=== PATIENT | male | born 1985 | race Hispanic/Latino ===

== ENCOUNTER 2022-05-19 13:30 | Emergency (ER) | payer OTHER, SELFPAY ==
[2022-05-19] MEDS ORDERED: MORPHINE 4 MG/ML SYR ONE ×2 (14:02→15:10)
[2022-05-19] MEDS ORDERED: ONDANSETRON 4 MG/2 ML VIAL ONE (14:02)
[2022-05-19] MEDS ORDERED: NA CHLORIDE 0.9% 1,000 ML ONE (15:12)
--- NOTE | 2022-05-19 15:12 | RAD REPORT ---
EXAM DESCRIPTION: RAD - Forearm Left - 05/19/2022 2:56 pm CLINICAL HISTORY: PAIN, blunt force trauma COMPARISON: None. FINDINGS: No fracture is identified. There is no dislocation or periosteal reaction noted. No air or foreign body in the soft tissues. Soft tissue edema or hematoma seen along the posterior or dorsal margin of the mid forearm. IMPRESSION: No fracture or acute bone finding.
--- NOTE | 2022-05-19 15:12 | RAD REPORT ---
EXAM DESCRIPTION: RAD - Hand Left 3 View - 05/19/2022 2:56 pm CLINICAL HISTORY: PAIN, blunt force trauma COMPARISON: None. FINDINGS: No fracture, dislocation or periosteal reaction noted. No foreign body or other soft tissu e abnormality. IMPRESSION: Negative left hand examination.
[2022-05-19] MEDS ORDERED: BUPIVACAINE 0.5% PF 10 ML VIAL ONE (16:23)
[2022-05-19] MEDS ORDERED: LIDOCAINE 1% MPF 5 ML VIAL ONE (16:23)
[2022-05-19] MEDS ORDERED: CEPHALEXIN 250 MG CAP ONE (16:58)
[2022-05-19] MEDS ORDERED: HYDROCODONE/APAP 10/325 TAB ONE (16:58)
[2022-05-19] MEDS ORDERED: TETANUS & DIPHTHERIA TOX,ADULT 0.5 ML VIAL ONE (16:59)
--- NOTE | 2022-05-19 17:09 | EDPHYS ---
Physician Documentation [facility] Name: Bright Thao Age: 36 yrs Sex: Male : 1985 Arrival Date: 05/19/2022 Time: 13:31 Bed 5 Private MD: ED Physician Roseanne Peace HPI: 05/19 14:00 This 36 yrs old Male presents to ER via Ambulatory with complaints of Crush cp Injury To Arm. 14:00 The patient or guardian complains of a crush injury, between two metal plates. cp 14:00 The complaints affect the left wrist and left hand and distal left forearm. Context: cp The problem was sustained at work, resulted from a crush injury. Onset: The symptoms/episode began/occurred just prior to arrival. Treatment prior to arrival includes: no previous treatment. Modifying factors: the symptoms are aggravated by movement. 14:00 Associated signs and symptoms: Pertinent positives: decreased range of motion, cp numbness, swelling, Pertinent negatives: deformity. Severity of symptoms: in the emergency department the symptoms are unchanged, despite home interventions. Historical: - Allergies: 13:46 No Known Allergies; ld1 - PMHx: 13:46 None; ld1 - PSHx: 13:46 None; ld1 - Immunization history:: Adult Immunizations up to date, Client reports receiving the 2nd dose of the Covid vaccine. - Social history:: Smoking status: Patient denies any tobacco usage or history of. Patient/guardian denies using alcohol. ROS: 14:05 Constitutional: Negative for body aches, chills, fever, poor PO intake. cp 14:05 Neck: Negative for pain with movement, pain at rest, stiffness. cp 14:05 Cardiovascular: Negative for chest pain, palpitations. 14:05 Respiratory: Negative for cough, shortness of breath, wheezing. 14:05 Abdomen/GI: Negative for abdominal pain, nausea, vomiting, and diarrhea. 14:05 Back: Negative for pain at rest, pain with movement. 14:05 MS/extremity: Positive for decreased range of motion, pain, paresthesias, swelling, tenderness, of the left hand and left wrist and distal aspect left forearm. 14:05 Neuro: Positive for numbness, of the left thumb, Negative for altered mental status, headache, weakness. 14:05 All other systems are negative. Exam: 14:10 Constitutional: The patient appears in no acute distress, alert, awake, non-toxic, well cp developed, well nourished, in obvious pain, uncomfortable. 14:10 Head/Face: Normocephalic, atraumatic. cp 14:10 Neck: ROM/movement: is normal, is supple, without pain, no range of motions limitations. 14:10 Chest/axilla: Inspection: normal. 14:10 Cardiovascular: Rate: normal, Rhythm: regular. 14:10 Respiratory: the patient does not display signs of respiratory distress, Respirations: normal, no use of accessory muscles, no retractions, labored breathing, is not present, Breath sounds: are clear throughout, no decreased breath sounds, no stridor, no wheezing. 14:10 Abdomen/GI: Inspection: abdomen appears normal, Palpation: abdomen is soft and non-tender, in all quadrants. 14:10 Back: pain, is absent, ROM is normal. 14:10 Musculoskeletal/extremity: Extremities: grossly normal except: noted in the left hand and left wrist and left distal forearm: decreased ROM, ecchymosis, swelling, tenderness, noted in the left thumb: moderate swelling noted of proximal phalanx extending to hyper thenar eminence, laceration noted to lateral side of proximal phalanx, active ROM decreased with flexion due to swelling and pain, sensation decreased distally, brisk cap refill noted, nail and nailbed intact. Vital Signs: 13:46 BP 115 / 81; Pulse 75; Resp 18; Temp 98.1(O); Pulse Ox 100% on R/A; Weight 97.07 kg; ld1 Height 6 ft. 0 in. (182.88 cm); Pain 10/10; 13:46 Body Mass Index 29.02 (97.07 kg, 182.88 cm) ld1 Laceration: 17:00 Wound Repair of 3cm ( 1.2in ) subcutaneous laceration to left thumb. Linear shaped.. cp Distal neuro/vascular/tendon intact. Anesthesia: Local anesthetic administered with 8 mls of Lido/Marcaine. Wound prep: Moderate cleansing by nurse by me, Wound irrigation by me. Skin closed with 5 4-0 Prolene using interrupted sutures and sterile technique. Dressed with Bacitracin, 4x4's. Patient tolerated well. MDM: 13:47 Patient medically screened. cp 17:07 Data reviewed: vital signs, nurses notes, radiologic studies, plain films. cp 17:07 Differential diagnosis: dislocation, open fracture, closed fracture, contusion, tendon cp rupture. Test interpretation: by ED physician or midlevel provider: plain radiologic studies. Counseling: I had a detailed discussion with the patient and/or guardian regarding: the historical points, exam findings, and any diagnostic results supporting the discharge/admit diagnosis, radiology results, the need for outpatient follow up, a hand specialist, to return to the emergency department if symptoms worsen or persist or if there are any questions or concerns that arise at home. Response to treatment: the patient's symptoms have markedly improved after treatment, and as a result, I will discharge patient. ED course: VSS. Pain improved with meds. Extremity splinted, laceration sutured closed. No fractures noted on xrays and no obvious signs of flexor tendon damage of left thumb. Will discharge to home with oral antibiotics, pain medications and recommendation to f/u with hand surgeon. 05/19 13:48 Order name: XRAY Hand LEFT 3 View; Complete Time: 15:40 05/19 15:40 Interpretation: Report reviewed. 05/19 13:48 Order name: XRAY Forearm LEFT; Complete Time: 15:40 05/19 15:40 Interpretation: Report reviewed. 05/19 13:48 Order name: IV; Complete Time: 13:53 05/19 14:03 Order name: Wound Care; Complete Time: 15:46 cp 05/19 15:42 Order name: Splint - Sugar Tong - Forearm; Complete Time: 16:06 cp 05/19 15:56 Order name: Dressing - Wound; Complete Time: 16:06 05/19 15:56 Order name: Gloves, Sterile; Complete Time: 16:06 05/19 15:56 Order name: Setup Suture Tray; Complete Time: 16:06 05/19 16:46 Order name: Wound dressing; Complete Time: 16:59 cp Administered Medications: 13:58 Drug: morphine 4 mg Route: IVP; Infused Over: 4 mins; Site: right antecubital; jh5 14:00 Drug: Zofran (Ondansetron) 4 mg Route: IVP; Site: right antecubital; 5 15:10 Drug: morphine 4 mg Route: IVP; Infused Over: 4 mins; Site: right antecubital; 5 16:44 Drug: Lidocaine (1 %) 10 ml {Note: given via Page.} Volume: 5 ml; Route: Infiltration; 5 16:44 Drug: Marcaine (bupivacaine) (0.5 %) 10 ml {Note: given via Page.} Volume: 10 ml; 5 Route: Infiltration; 16:56 Drug: Tetanus-Diphtheria Toxoid Adult 0.5 ml {Pest Technician: [employer]. Exp: jh5 07/10/2022. Lot #: [id number]. } Route: IM; Site: left deltoid; 16:57 Drug: KeFLEX (cephalexin) 500 mg Route: PO; 5 16:57 Drug: HYDROcodone-acetaminophen 10 mg-325 mg 1 tabs Route: PO; jh5 Disposition Summary: 05/19/22 17:08 Discharge Ordered Location: Home cp Problem: new cp Symptoms: have improved cp Condition: Stable cp Diagnosis - Laceration without foreign body of left thumb without damage to nail, initial cp encounter - Crushing injury of hand - left cp - Crushing injury of left wrist, initial encounter cp Followup: cp - With: Osiel Landrum MD - When: 2 - 3 days - Reason: Wound Recheck Discharge Instructions: - Discharge Summary Sheet cp - Laceration Care, Adult cp - Crush Injury of the Hand cp Forms: - Medication Reconciliation Form cp - Thank You Letter cp - Antibiotic Education cp - Prescription Opioid Use cp Prescriptions: - Cephalexin 500 mg Oral Capsule - take 1 capsule by ORAL route every 6 hours for 10 days; 40 capsule; Refills: 0, cp Product Selection Permitted - Ibuprofen 800 mg Oral Tablet - take 1 tablet by ORAL route every 8 hours As needed take with food; 30 tablet; cp Refills: 0, Product Selection Permitted - Tylenol-Codeine #3 300 mg-30 mg Oral - take 2 tablet by ORAL route every 6-8 hours; 20 tablet; Refills: 0, Product cp Selection Permitted Signatures: Dispatcher [employer] EDMS Kan Stewart PA PA cp Dibbern, Lauren, RN RN ld1 Enma Garcia RN RN jh5 Corrections: (The following items were deleted from the chart) 05/20 15:48 15:45 The patient or guardian complains of a crush injury, between two metal , cp cp
--- NOTE | 2022-05-19 17:09 | ER ---
Nurse's Notes [facility] Name: Bright Thao Age: 36 yrs Sex: Male : 1985 Arrival Date: 05/19/2022 Time: 13:31 Bed 5 Private MD: Diagnosis: Laceration without foreign body of left thumb without damage to nail, initial encounter;Crushing injury of hand-left;Crushing injury of left wrist, initial encounter Presentation: 05/19 13:42 Chief complaint: Patient states: arm was crushed between two metal plates at work 15 eh3 minutes ago. Care prior to arrival:. Mechanism of Injury: Crush injury from industrial equipment. Trauma event details: Injury occurred in the [facility], Injury occurred:. 13:42 Acuity: PHILOMENA 2 eh3 13:42 Method Of Arrival: Ambulatory eh3 13:46 Coronavirus screen: At this time, the client does not indicate any symptoms associated ld1 with coronavirus-19. Ebola Screen: No symptoms or risks identified at this time. Initial Sepsis Screen: Does the patient meet any 2 criteria? No. Patient's initial sepsis screen is negative. Does the patient have a suspected source of infection? No. Patient's initial sepsis screen is negative. Risk Assessment: Do you want to hurt yourself or someone else? Patient reports no desire to harm self or others. Onset of symptoms was May 19, 2022. Triage Assessment: 13:46 General: Appears in no apparent distress. comfortable, Behavior is calm, cooperative, ld1 appropriate for age. Pain: Complains of pain in left arm Pain does not radiate. Pain currently is 10 out of 10 on a pain scale. Quality of pain is described as crushing, sharp, shooting, throbbing. EENT: No signs and/or symptoms were reported regarding the EENT system. Neuro: Level of Consciousness is awake, alert, obeys commands, Oriented to person, place, time, situation. Cardiovascular: Capillary refill < 3 seconds Patient's skin is warm and dry. Respiratory: Airway is patent Respiratory effort is even, unlabored. GI: Abdomen is flat, non-distended. : No signs and/or symptoms were reported regarding the genitourinary system. Derm: No signs and/or symptoms reported regarding the dermatologic system. Musculoskeletal: Bony deformity noted of left arm. Historical: - Allergies: 13:46 No Known Allergies; ld1 - PMHx: 13:46 None; ld1 - PSHx: 13:46 None; ld1 - Immunization history:: Adult Immunizations up to date, Client reports receiving the 2nd dose of the Covid vaccine. - Social history:: Smoking status: Patient denies any tobacco usage or history of. Patient/guardian denies using alcohol. Screenin:00 Abuse screen: Denies threats or abuse. Denies injuries from another. Nutritional 5 screening: No deficits noted. Tuberculosis screening: No symptoms or risk factors identified. Fall Risk None identified. Vital Signs: 13:46 BP 115 / 81; Pulse 75; Resp 18; Temp 98.1(O); Pulse Ox 100% on R/A; Weight 97.07 kg; ld1 Height 6 ft. 0 in. (182.88 cm); Pain 10/10; 13:46 Body Mass Index 29.02 (97.07 kg, 182.88 cm) ld1 ED Course: 13:31 Patient arrived in ED. as 13:37 Kan Stewart PA is PHCP. cp 13:37 Roseanne Peace MD is Attending Physician. cp 13:45 Triage completed. eh3 13:46 Arm band placed on right wrist. ld1 13:47 Enma Garcia, CLAUDIO is Primary Nurse. jh5 13:58 Inserted saline lock: 18 gauge in right antecubital area, using aseptic technique. jh5 14:00 Patient has correct armband on for positive identification. Call light in reach. jh5 14:00 No provider procedures requiring assistance completed. jh5 15:02 XRAY Hand LEFT 3 View In Process Unspecified. EDMS 15:02 XRAY Forearm LEFT In Process Unspecified. EDMS 17:07 Osiel Landrum MD is Referral Physician. cp 17:35 IV discontinued, intact, bleeding controlled, No redness/swelling at site. Pressure jh5 dressing applied. Administered Medications: 13:58 Drug: morphine 4 mg Route: IVP; Infused Over: 4 mins; Site: right antecubital; jh5 14:00 Drug: Zofran (Ondansetron) 4 mg Route: IVP; Site: right antecubital; jh5 15:10 Drug: morphine 4 mg Route: IVP; Infused Over: 4 mins; Site: right antecubital; [facility] 16:44 Drug: Lidocaine (1 %) 10 ml {Note: given via Page.} Volume: 5 ml; Route: Infiltration; [facility] 16:44 Drug: Marcaine (bupivacaine) (0.5 %) 10 ml {Note: given via Page.} Volume: 10 ml; [facility] Route: Infiltration; 16:56 Drug: Tetanus-Diphtheria Toxoid Adult 0.5 ml {Packing Inspector: [employer]. Exp: jh5 07/10/2022. Lot #: [id number]. } Route: IM; Site: left deltoid; 16:57 Drug: KeFLEX (cephalexin) 500 mg Route: PO; [facility] 16:57 Drug: HYDROcodone-acetaminophen 10 mg-325 mg 1 tabs Route: PO; [facility] Medication: 17:36 VIS not applicable for this client. [facility] Outcome: 17:08 Discharge ordered by . sofie 17:35 Discharged to home ambulatory, with friend. [facility] 17:35 Condition: good 17:35 Discharge instructions given to patient, Instructed on discharge instructions, follow up and referral plans. medication usage, safety practices, Demonstrated understanding of instructions, follow-up care, medications, splint care, Prescriptions given X 3. 17:36 Patient left the ED. [facility] Signatures: Dispatcher [employer] EDMS Alyse Garcia Corey, PA PA cp Dibbern, Lauren, RN RN ld1 Enma Garcia RN RN 5 Marzena Castellon RN RN 3 Corrections: (The following items were deleted from the chart) 13:46 13:42 Chief complaint: Patient states: arm was crushed between two metal plates at work ld1 15 minutes ago 3
[2022-05-19 20:37] VITALS: BP 115/81; TEMP 98.1; O2SAT 100
== END 2022-05-19 17:36 | disposition home or self-care (01) ==
LOC: ER 13:30
PROC: 0JQK0ZZ Repair Left Hand Subcutaneous Tissue and Fascia, Open Approach (ICD-10-PCS; principal; 2022-05-19)
DX: S61.012A Laceration without foreign body of left thumb without damage to nail, initial encounter (principal); S67.42XA Crushing injury of left wrist and hand, initial encounter; Z23 Encounter for immunization
CPT/HCPCS: 73130; 73090; 90714; 12002; J7030; J2405; 90471; 96374; 96375; 99284